=== PATIENT | male | born 1960 | race Caucasian/White ===

== ENCOUNTER 2017-04-11 13:49 | Emergency (ER) | payer BC | END 2017-04-11 17:30 | disposition home or self-care (01) | LOC: CED 13:49 | DX: I82.402 Acute embolism and thrombosis of unspecified deep veins of left lower extremity (principal) | CPT/HCPCS: 99283 ==

== ENCOUNTER → 2017-04-11 | Outpatient (CLI) | payer BC ==
[~2017-04-11] MED LIST: COSAMIN PO; COUMADIN PO; COUMADIN5 MG PO; FISH OIL500 MG PO; IBUPROFEN200 M1 PO; LOVENOX100 MG/ML INJ; MULTI-DAY VITAM1 TAB; MULTI-DAY VITAM1 TAB PO; VICODIN 5/1 TAB 5/50 PO; VICODIN PO; VIT PO; VITAMIN D31000 UNIT PO; [UNRECOGNIZED DRUG - OTHER] PO; [UNRECOGNIZED DRUG - OTHER] PO
--- NOTE | ~2017-04-11 | CR17 ---
[facility] A Service of [facility] & [facility] RADIOLOGY TEXT RESULTS PATIENT: YANELIS GAMEZ LOCATION: CNIV : 56 UNIT #: [id number] AGE: [address]: Felecia Lynch MD SEX: M ORDER DR: [id number] [facility] [address] [place], [place] [address] [id number] O MR#: [id number] Acc #: [id number] NAME: YANELIS GAMEZ : 1960 SEX: M STUDY DATE/TIME: 04/11/2017 12:22 UNIT: CNIV ROOM: STUDY DESCRIPTION: CR Ankle 2 Views Lt Attending Physician: Felecia Lynch M.D. Referring Physician: Felecia Lnych M.D. Ordering Physician: Felecia Lynch M.D. Primary Care Physician: Felecia Lynch M.D. MEDICAL IMAGING REPORT This report is preliminary unless electronic signature is present EXAM Left ankle, 3 views; 04/11/2017. HISTORY One week history of pain after injury. FINDINGS There is no fracture and the mortise is preserved. There is some medial and lateral soft tissue swelling, but no acute bony abnormality. No foreign body. Dictated by... Nicolas Eckert M.D. THIS IS AN ELECTRONICALLY VERIFIED REPORT Nicolas Eckert M.D. at 04/18/2017 5:38 PM MIKEY/rosette TD: 04/11/2017 16:23 JOB #: [id number] MEDICAL IMAGING REPORT Page 1 of 1 COPY
--- NOTE | ~2017-04-11 | CR123 ---
[facility] A Service of [facility] & [facility] RADIOLOGY TEXT RESULTS PATIENT: YANELIS GAMEZ LOCATION: CNIV : 56 UNIT #: [id number] AGE: [address]: Felecia Lynch MD SEX: M ORDER DR: [id number] [facility] [address] [place], [place] [address] [id number] O MR#: [id number] Acc #: [id number] NAME: YANELIS GAMEZ : 1960 SEX: M STUDY DATE/TIME: 04/11/2017 12:21 UNIT: CNIV ROOM: STUDY DESCRIPTION: CR Foot 2 Views Lt Attending Physician: Felecia Lynch M.D. Referring Physician: Felecia Lynch M.D. Ordering Physician: Felecia Lynch M.D. Primary Care Physician: Felecia Lynch M.D. MEDICAL IMAGING REPORT This report is preliminary unless electronic signature is present EXAM Left foot 3 views, 04/11/2017 COMPARISON None HISTORY One week history of foot pain. FINDINGS The tarsal, metatarsal, and phalangeal elements are all anatomically normal in position and alignment. There are no articular defects. No fractures or radiopaque foreign bodies in the soft tissues are apparent. IMPRESSION Normal left foot. Dictated by... Nicolas Eckert M.D. THIS IS AN ELECTRONICALLY VERIFIED REPORT Nicolas Eckert M.D. at 04/18/2017 5:38 PM Lewis TD: 04/11/2017 16:15 JOB #: [id number] MEDICAL IMAGING REPORT Page 1 of 1 COPY
--- NOTE | ~2017-04-11 | US85 ---
[facility] A Service of [facility] & [facility] RADIOLOGY TEXT RESULTS PATIENT: YANELIS GAMEZ LOCATION: CNIV : 56 UNIT #: [id number] AGE: [address]: Felecia Lynch MD SEX: M ORDER DR: [id number] [facility] [address] [place], [place] [address] [id number] O MR#: [id number] Acc #: [id number] NAME: YANELIS GAMEZ : 1960 SEX: M STUDY DATE/TIME: 04/11/2017 12:51 UNIT: CNIV ROOM: STUDY DESCRIPTION: YOMI [employer] Attending Physician: Felecia Lynch M.D. Referring Physician: Felecia Lynch M.D. Ordering Physician: Felecia Lynch M.D. Primary Care Physician: Felecia Lynch M.D. MEDICAL IMAGING REPORT This report is preliminary unless electronic signature is present EXAM Left lower extremity venous duplex 04/11/2017 HISTORY History of DVT. History of ankle injury. History of blood thinner. Left lower extremity pain mid-thigh x 1 week. FINDINGS There is phasic spontaneous flow with respiration seen over the left common femoral and deep femoral vein. There is compressibility of the vein lumen of these vessels. There is continuous flow seen in the left femoral vein, and there is non-compressibility of this vein lumen. There is phasic spontaneous flow with respiration seen of the left popliteal, anterior tibial and posterior tibial, peroneal and saphenous vein. At the distal saphenous vein, however, there is no flow seen and it is non-compressible. IMPRESSION 1. Positive exam for left femoral DVT. It is of an indeterminate age. 2. Positive exam for a superficial vein thrombosis of the distal aspect of the left saphenous vein. Dictated by... Lazaro Cornell M.D. THIS IS AN ELECTRONICALLY VERIFIED REPORT Lazaro Cornell M.D. at 04/14/2017 1:41 PM [facility] A Service of [facility] & [facility] RADIOLOGY TEXT RESULTS PATIENT: YANELIS GAMEZ LOCATION: [facility] : 56 UNIT #: [id number] AGE: [address]: Felecia Lynch MD SEX: M ORDER DR: Alma Delia TD: 04/11/2017 20:12 JOB #: [id number] MEDICAL IMAGING REPORT Page 1 of 1 COPY
== END | disposition home or self-care (01) ==
LOC: CNIV 12:06
DX: M25.472 Effusion, left ankle (principal); I82.412 Acute embolism and thrombosis of left femoral vein; I82.812 Embolism and thrombosis of superficial veins of left lower extremity
CPT/HCPCS: 73600; 73620; 93971